=== PATIENT | male | born 1970 | race Caucasian/White ===

== ENCOUNTER 2022-06-01 01:39 | Day surgery (SDC) | payer OTHER, SELFPAY ==
[2022-05-28 14:52] VITALS: BMI 39.3
--- NOTE | 2022-05-28 14:54 | SUR.PREOP ---
Report to the Outpatient Waiting Room, entrance under the green pavilion located off [facility], at time _0600 on date _06/01/22 . OR Time: _929 . - You and your visitor will be asked a series of questions to screen for COVID 19 for your protection. - Only one visitor is allowed at this time. - The patient visitor is requested to leave or wait in car when not with patient. - A mask is required within the hospital. Patients may have clear liquids (water, carbonated beverages, clear teas, apple juice) until 3 hours prior to surgery with a maximum of 20 ounces. - No food from midnight until time of surgery - Infants may have breast milk until 4 hours before surgery, infant formula 6 hours prior to surgery. - Children will be allowed to drink immediately following surgery. If applicable, please bring a bottle or sippy cup to assist with drinking. Juice, water, soda, and popsicles are readily available. For infants on formula, please bring formula the day of surgery. Pacifiers are allowed. Take the following medications with a SIP of water the morning of surgery: _atenolol Medications to discontinue per physician ___fish oil Date to take last dose_05/29/22 Please no make-up, nail kiswahili, hairspray, perfume, deodorant, or body powder the day of surgery. No jewelry (including any body piercings) or valuables the day of surgery, leave them at home. Please take a shower or bath the night before, or the morning of, surgery with an antibacterial soap. Wear comfortable, loose fitting clothing. Children are encouraged to wear pajamas. - Jewelry must be removed prior to entering the operating room. Rings and piercings that are not removed may be cut off. - The hospital will not accept responsibility for valuables. - Please leave all valuables, including medications, at home the day of surgery. If you are going home after surgery, a licensed tank truck driver must drive you home. - NO public transportation without another adult. - We recommend that an adult stay with you for 24 hours following discharge. - We also recommend that you do not drive, make important decision, drink alcoholic beverages, or take any drugs that were not prescribed by your health care provider for at least 24 hours after your discharge time. For Pediatric surgeries, we recommend two adults accompany the child home (only one inside the building at this time). Follow any additional instructions given to you from your surgeon. If you or anyone in your household have experienced Covid symptoms in the past week, please notify your surgeon or the nurse liaison at the phone number below for possible testing. Telephone instructions given to ruth crowder and asked if any additional questions and then verbalized understanding. Patient advised to call surgeon office or pre surgery nurse liaison [phone] if any additional questions.
--- NOTE | 2022-05-31 15:55 | WPDANESEPPF ---
Anes - Initial Pre Proc Eval Procedure: Operation Date: 06/01/22 09:00 Proposed Procedures p Parathyroidectomy Exploration - John Calix MD <Zachary Fragoso DO - Last Filed: 06/02/22 08:49> Date/Time: 05/31/22 15:55 <Zachary Fragoso DO - Last Filed: 06/02/22 08:49> Surgeon: John Calix MD <Zachary Fragoso DO - Last Filed: 06/02/22 08:49> Pre Op Diagnosis: hyper parathyroidism <Zachary Fragoso DO - Last Filed: 06/02/22 08:49> Patient Data Age: 51 Gender: M Height: 1.73 m Weight: 117.27 kg <Zachary Fragoso DO - Last Filed: 06/02/22 08:49> Allergies Allergy/AdvReac Type Severity Reaction Status Date / Time Penicillins Allergy Severe HIVES Verified 06/01/22 06:08 <Zachary Fragoso DO - Last Filed: 06/02/22 08:49> Home Medications Medication Instructions Recorded Confirmed Type atenolol 25 mg tablet 25 mg PO DAILY 10/03/20 06/01/22 History cholecalciferol (vitamin D3) 50 50 mcg PO DAILY 30 days #30 caps 02/08/21 06/01/22 Rx mcg (2,000 unit) capsule cinacalcet 30 mg tablet (Sensipar) 30 mg PO DAILY 3 months #90 tabs 05/02/22 06/01/22 Rx omega-3 fatty acids-fish oil 340 1 cap PO DAILY 05/28/22 06/01/22 History mg-1,000 mg capsule (Fish Oil) oxycodone 5 mg tablet 5 mg PO Q8H PRN pain #21 tabs 06/01/22 Rx <Zachary Fragoso DO - Last Filed: 06/02/22 08:49> Patient hx anesthesia problems: none <Luis Hauser CRNA - Last Filed: 06/01/22 08:19> Family hx anesthesia problems: none <Luis Hauser CRNA - Last Filed: 06/01/22 08:19> Results Review: All pre-operative results and documents have been reviewed as part of the pre-operative evaluation. <Zachary Fragoso DO - Last Filed: 06/02/22 08:49> [facility] Past Medical History Medical History: Medical History (Updated 06/01/22 @ 12:43 by John Calix MD) H/O: HTN (hypertension) Hyperparathyroidism <Zachary Fragoso DO - Last Filed: 06/02/22 08:49> Family History Family History: Family History (Reviewed 05/10/22 @ 07:54 by Juliana Currie [facility]) Other Heart disease <Zachary Fragoso DO - Last Filed: 06/02/22 08:49> Social History Social History: Social History (Reviewed 05/10/22 @ 07:54 by Juliana Currie [facility]) Smoking status: Never smoker Second hand tobacco smoke exposure: No Alcohol intake: current Drinks per week: 2 Substance use: never Substance use type: does not use Spiritual care concerns: No <Zachary Fragoso DO - Last Filed: 06/02/22 08:49> Anes - Eval Final PreProcedure Day of Procedure 05/31/22 15:55 <Zachary Fraogso DO - Last Filed: 06/02/22 08:49> Patient weight: obese <Zachary Fragoso DO - Last Filed: 06/02/22 08:49> Heart: regular rate and rhythm <Zachary Fragoso DO - Last Filed: 06/02/22 08:49> Lungs: clear to auscultation <Zachary Fragoso DO - Last Filed: 06/02/22 08:49> Airway: Mallampati scale class II <Zachary Fragoso DO - Last Filed: 06/02/22 08:49> Mallampati scale class 1 <Luis Hauser ELEVATOR REPAIR MECHANIC - Last Filed: 06/01/22 08:19> Neurological: alert and oriented <Zachary Fragoso DO - Last Filed: 06/02/22 08:49> Last oral intake: >/= 8 hours <Zachary Fragoso DO - Last Filed: 06/02/22 08:49> ASA classification: III <Zachary Fragoso DO - Last Filed: 06/02/22 08:49> Emergent: no <Zachary Fragoso DO - Last Filed: 06/02/22 08:49> Anesthetic plan: proceed <Zachary Fragoso DO - Last Filed: 06/02/22 08:49> Anesthesia type and monitoring: general GIVS and standard monitoring <Zachary Fragoso DO - Last Filed: 06/02/22 08:49> general ETT <Luis Hauser, ELEVATOR REPAIR MECHANIC - Last Filed: 06/01/22 08:19> Results Review: All pre-operative results and documents have been reviewed as part of the pre-operative evaluatio
--- NOTE | 2022-05-31 16:45 | P.HP_ITS ---
H&P: HPI History of Present Illness Date/Time: 05/31/22 16:45 Chief Complaint: Parathyroid adenoma hypercalcemia hyperparathyroidism Narrative: patient presents for planned surgical procedures no change in symptoms no change history Review of Systems Review of Systems: All systems reviewed & are unremarkable except as noted in HPI and below [facility] Past Medical History Medical History (Updated 05/31/22 @ 16:48 by John Calix MD) H/O: HTN (hypertension) Hyperparathyroidism Family History Family History Other Heart disease Social History Social History Smoking status: Never smoker Second hand tobacco smoke exposure: No Alcohol intake: current Drinks per week: 2 Substance use: never Substance use type: does not use Living arrangements: with family Spiritual care concerns: No Meds Home Medications and Allergies Home Medications Medication Instructions Recorded Confirmed Type atenolol 25 mg tablet 25 mg PO DAILY 10/03/20 05/28/22 History cholecalciferol (vitamin D3) 50 50 mcg PO DAILY 30 days #30 caps 02/08/21 05/28/22 Rx mcg (2,000 unit) capsule cinacalcet 30 mg tablet (Sensipar) 30 mg PO DAILY 3 months #90 tabs 05/02/22 05/28/22 Rx omega-3 fatty acids-fish oil 340 1 cap PO DAILY 05/28/22 05/28/22 History mg-1,000 mg capsule (Fish Oil) Allergies Allergy/AdvReac Type Severity Reaction Status Date / Time Penicillins Allergy Intermediate HIVES Verified 05/28/22 14:31 Exam Narrative: normal ENT exam Assessment and Plan Assessment and plan (1) Hyperparathyroidism: Code(s): E21.3 - Hyperparathyroidism, unspecified Status: Acute Assessment and Plan: plan is for the operating room for parathyroidectomy 4 gland exploration if needed will start with left lower. Will need preoperative PTH level will need preoperative sestamibi injection. Risks were discussed including permanent hypercalcemia need for further procedures failure to resolve the symptoms of parathyroid adenoma cannot be found damage to recurrent laryngeal nerve postoperative bleeding postoperative infection need for postoperative pain medication and time off work. Patient voiced understanding of all these risks and agreed. Patient will also need a postoperative calcium taper. (2) Parathyroid adenoma: Code(s): D35.1 - Benign neoplasm of parathyroid gland Status: Acute (3) Hypercalcemia due to hyperthyroidism: Code(s): E83.52 - Hypercalcemia; E05.90 - Thyrotoxicosis, unspecified without thyrotoxic crisis or storm Status: Acute
[2022-06-01] VITALS (8 sets, daily range): BP systolic 136–153; BP diastolic 79–96; PULSE 65–81; RESP 12–20; TEMP 36.3–36.7; O2SAT 96–99
--- NOTE | ~2022-06-01 | NM_ITS ---
EXAMINATION: NM parathyroid injection only DATE: 06/01/2022 08:32 INDICATION: Hyperparathyroidism. TECHNIQUE: 5.6 mCi Tc99m sestamibi was administered intravenously. No images were obtained. COMPARISON: None. FINDINGS: None. IMPRESSION: 1. Injection of radiotracer for parathyroidectomy. Reviewed, dictated and finalized at location A.
--- NOTE | 2022-06-01 06:21 | ECG_ITS ---
Measurements Intervals [place] Rate: 65 P: 19 DE: 193 QRS: 9 QRSD: 89 T: 15 QT: 382 QTc: 399 Interpretive Statements SINUS RHYTHM MINIMAL Q WAVES- HIGH LATERAL LEADS BORDERLINE ECG Electronically Signed On 06-01-2022 18:21:04 CDT by Jamey Hsu D.O.
[2022-06-01] MEDS: LACTATED RINGERS 1,000 ML 30 ML IV CONT ×2 (06:40→12:20)
--- NOTE | 2022-06-01 07:08 | WPDHPUPDATE1 ---
History and Physical Update Update Date/Time: 06/01/22 07:08 History and Physical has been reviewed, including an updated exam of the patient. There are NO changes in the patient's condition. Risks, benefits, and alternatives have been discussed and questions answered. Patient agrees to proceed with procedure. Will also require recurrent laryngeal nerve monitoring, pre op pth, and pre op sestamibi.
[2022-06-01 07:53] LABS: Parathyroid Intact 212.4 pg/mL (7.5-53.5)
[2022-06-01] MEDS: ACETAMINOPHEN 500 MG TABLET 1000 MG PO (08:20)
[2022-06-01] MEDS: ceFAZolin 2 GM/D5W 50 ML 2 GM/50 ML BAG IVPB (09:11)
[2022-06-01] MEDS: LIDO 1%/EPINEPHRINE 1:100,000 10 ML VIAL INFILTRATE (09:35)
--- NOTE | 2022-06-01 12:53 | W.PM.PROC2 ---
Procedure Note - Detailed Date of Procedure 06/01/22 Pre-op Diagnosis hyper parathyroidism, parathyroid adenoma Post-op Diagnosis Same Procedure Performed Parathyroid exploration 4 gland Surgeon John Calix MD Anesthesia General Indications See above Findings Unable to find the adenoma unable to find the left inferior parathyroid gland others explored and located all appeared normal Description of Procedure Patient identified consent verified. Patient brought operating room. Time-out performed. General anesthesia induced Nims monitoring tube placed and confirmed to be in good location. Patient prepped and draped for the aforementioned procedure 2nd time-out performed Nims monitoring in place. About 5 cm incision made 1-2 finger breaths above the sternum in the midline transverse. Fifteen blade utilized to cut through the skin. Bovie electrocautery utilized to dissect through the platysma. Subplatysmal planes were raised superiorly and inferiorly to the sternum. The midline raphe was identified and blunt as well as Bovie at blunt as well as dissection Bovie electrocautery utilized to move the strap muscles off the thyroid gland. Dura hooks were placed. The left inferior thyroid aspect was explored for quite some time no adenoma or parathyroid gland was found. The left superior right inferior and right superior glands were all identified. Some of the thymic context were then explored no adenoma was identified. Several samples were sent for pathologic analysis none came back as parathyroid tissue. At this time the decision made was made to close as I could not locate the adenoma. The wound was copiously irrigated a 7 mm drain was placed the deep layers were closed with 3-0 interrupted Vicryl sutures including the strap muscles as well as the platysma. Deep dermal tissues were closed with combination of 3-0 and 4-0 interrupted sutures Vicryl. The skin was closed with skin glue. Patient appeared to tolerate the procedure well there were no complications total blood loss only about 10 cc. Estimated Blood Loss 10 Drains No Packing No Pathology Yes (Multiple frozen) Complications No immediate complications Condition Stable Disposition PACU
[2022-06-01] MEDS: oxyCODONE HCL (*CRX) 5 MG TAB IR PO (13:28)
== END 2022-06-01 14:10 | disposition home or self-care (01) ==
PROVIDERS: PCP Physician Assistant; Visit Provider Otolaryngology
PROC: (CPT 60500; principal; 2022-06-01 09:00)
DX: E21.3 Hyperparathyroidism, unspecified (principal); E05.90 Thyrotoxicosis, unspecified without thyrotoxic crisis or storm; I10 Essential (primary) hypertension; E66.9 Obesity, unspecified; Z68.39 Body mass index [BMI] 39.0-39.9, adult
CPT/HCPCS: 60500; 36415; 78808; 83970; 88305; 88331; 93005; A9270; A9500; J0330; J0690; J1100; J2250; J2405; J2704; J3010; J7120

== ENCOUNTER 2022-06-08 07:44 | Emergency (ER) | payer OTHER, SELFPAY ==
[2022-06-08 07:47] VITALS: BP 161/100; PULSE 77; RESP 18; TEMP 36.1; O2SAT 99
--- NOTE | 2022-06-08 08:02 | ED.GENADULT ---
HPI - General Adult General Chief complaint: Unspecified Stated complaint: thyroid sx on Saturday, getting red and swollen Time Seen by Provider: 06/08/22 07:53 Source: patient Mode of arrival: ambulatory Limitations: no limitations History of Present Illness HPI narrative: This is a 51 year old male who presents for wound infection s/p parathyroidectomy. Patient states Dr. Calix performed parathyroidectomy on him on 06/01/22. He noticed redness and itching at surgical site yesterday. He has some mild swellling. He denies fever, chills, nausea, vomiting or purulent drainage. He notified Dr. Calix that he was coming to ER Onset (ago): day(s) (1) Related Data Home Medications Medication Instructions Recorded Confirmed atenolol 25 mg tablet 25 mg PO DAILY 10/03/20 06/05/22 omega-3 fatty acids-fish oil 340 1 cap PO DAILY 05/28/22 06/05/22 mg-1,000 mg capsule (Fish Oil) Allergies Allergy/AdvReac Type Severity Reaction Status Date / Time Penicillins Allergy Severe HIVES Verified 06/08/22 07:57 Review of Systems Review of Systems: CONSTITUTIONAL: Denies fever, chills, or sweats. EYES: Denies visual changes, redness, or discharge. ENT: Denies rhinorrhea, congestion, sore throat, or otalgia. CARDIOVASCULAR: Denies chest pain, palpitations, or edema. RESPIRATORY: Denies cough or dyspnea. GASTROINTESTINAL: Denies abdominal pain, nausea, vomiting, or diarrhea. GENITOURINARY: Denies dysuria or hematuria. SKIN: reports redness and itching MUSCULOSKELETAL: Denies back pain, joint pain, or myalgia. NEUROLOGIC: Denies headache, numbness, or weakness. PSYCHIATRIC: Denies anxiety or depression. [facility] Past Medical History Medical History H/O: HTN (hypertension) Hyperparathyroidism Family History Family History Other Heart disease Social History Social History Smoking status: Never smoker Second hand tobacco smoke exposure: No Alcohol intake: current Drinks per week: 2 Substance use: never Substance use type: does not use Spiritual care concerns: No Exam Narrative: GENERAL: Well-appearing, well-nourished, and in no acute distress. HEAD: Normocephalic, atraumatic EYES: PERRLA and EOMI, conjunctiva clear without discharge THROAT:Mucous membranes moist, Oropharynx normal without erythema, exudate, peritonsillar swelling or fluctuance NECK: Supple, without lymphadenopathy or mass, anterior neck with horizontal laceration with mild erythema, no drainage RESPIRATORY: No respiratory distress, Airway patent, Respirations non-labored, Clear to auscultation without rales, rhonchi or wheeze HEART: Regular rate and rhythm. No murmur heard. Normal peripheral pulses. EXTREMITIES: No edema, normal strength with full range of motion. SKIN: Warm, dry, small mid upper chest incision with 8 cm area of erythema, no drainage, no crepitus NEURO: Alert and oriented x3. CN 2-12 grossly intact. No focal deficits. PSYCH: Normal mood and affect. Course Reevaluation(s) Reevaluation #1: Dr. Calix came down to ER to assess patient. He states to given patient antibiotics for cellulitis and he will closely follow patient as outpatient. Date: 06/08/22 Time: 09:45 Consultations Consultation #1: Dr. Calix will come down to see patient in ER Date: 06/08/22 Time: 08:03 Vital Signs Vital signs: Vital Signs Temperature 97.0 F L 06/08/22 07:47 Pulse Rate 77 06/08/22 07:47 Respiratory Rate 18 06/08/22 07:47 Blood Pressure 161/100 H 06/08/22 07:47 Pulse Oximetry 99 06/08/22 07:47 Oxygen Delivery Room Air 06/08/22 07:47 Temperature 97.0 F L 06/08/22 07:47 Pulse Rate 61 06/08/22 10:00 Respiratory Rate 18 06/08/22 10:00 Blood Pressure 154/84 H 06/08/22 10:00 Pulse Oximetry 98 06/08/22 10:00 Oxygen Delivery Room Air
[2022-06-08] MEDS: CLINDAMYCIN 900 MG/D5W 50 ML 900 MG/50 ML PIGGYBACK 50 MG IVPB (08:28)
[2022-06-08 09:24] VITALS: BP 161/87; PULSE 76; RESP 18; O2SAT 100
[2022-06-08 10:00] VITALS: BP 154/84; PULSE 61; RESP 18; O2SAT 98
--- NOTE | 2022-06-12 11:45 | ED.GENADULT ---
HPI - General Adult General Chief complaint: Unspecified Stated complaint: thyroid sx on Saturday, getting red and swollen Time Seen by Provider: 06/08/22 07:53 Source: patient Mode of arrival: ambulatory Limitations: no limitations History of Present Illness HPI narrative: Patient is status post parathyroidectomy several days ago. Reports 20 for history of worsening running of his chest no swelling no trouble breathing. Related Data Home Medications Medication Instructions Recorded Confirmed atenolol 25 mg tablet 25 mg PO DAILY 10/03/20 06/05/22 omega-3 fatty acids-fish oil 340 1 cap PO DAILY 05/28/22 06/05/22 mg-1,000 mg capsule (Fish Oil) Allergies Allergy/AdvReac Type Severity Reaction Status Date / Time Penicillins Allergy Severe HIVES Verified 06/08/22 07:57 Review of Systems Review of Systems: All systems reviewed & are unremarkable except as noted in HPI and below PMFSH Past Medical History Medical History H/O: HTN (hypertension) Hyperparathyroidism Family History Family History Other Heart disease Social History Social History Smoking status: Never smoker Second hand tobacco smoke exposure: No Alcohol intake: current Drinks per week: 2 Substance use: never Substance use type: does not use Spiritual care concerns: No Exam Narrative: Midline incision healing well neck is somewhat erythematous deep to the incision site no edema could be pooling of postoperative fluid versus spreading cellulitis. Not painful not Course Vital Signs Vital signs: Vital Signs Temperature 36.1 C L 06/08/22 07:47 Pulse Rate 77 06/08/22 07:47 Respiratory Rate 18 06/08/22 07:47 Blood Pressure 161/100 H 06/08/22 07:47 Pulse Oximetry 99 06/08/22 07:47 Oxygen Delivery Room Air 06/08/22 07:47 Temperature 36.1 C L 06/08/22 07:47 Pulse Rate 61 06/08/22 10:00 Respiratory Rate 18 06/08/22 10:00 Blood Pressure 154/84 H 06/08/22 10:00 Pulse Oximetry 98 06/08/22 10:00 Oxygen Delivery Room Air 06/08/22 07:47 Medical Decision Making MDM Narrative Medical decision making narrative: patient either has a spreading cellulitis versus settling of postoperative fluids in that space settling to the top of the chest subcutaneously mild concerned patient a voiced understanding that if the redness should spread or if he should develop fevers swelling difficulty breathing he will immediately return to ER. Please discharge on 1 week of anti cellulitic bacteria antibiotics anti-Staph anti MRSA. Vital Signs Vital Signs: Vital Signs Temperature 36.1 C L 06/08/22 07:47 Pulse Rate 77 06/08/22 07:47 Respiratory Rate 18 06/08/22 07:47 Blood Pressure 161/100 H 06/08/22 07:47 Pulse Oximetry 99 06/08/22 07:47 Oxygen Delivery Room Air 06/08/22 07:47 Temperature 36.1 C L 06/08/22 07:47 Pulse Rate 61 06/08/22 10:00 Respiratory Rate 18 06/08/22 10:00 Blood Pressure 154/84 H 06/08/22 10:00 Pulse Oximetry 98 06/08/22 10:00 Oxygen Delivery Room Air 06/08/22 07:47 Discharge Plan Discharge Clinical Impression: Cellulitis, Post-operative infection Patient Disposition: Home, Self-Care Condition: Stable Instructions: Antibiotic Form, Cellulitis (ED), Surgical Site Infections (ED) Additional Instructions: Take antibiotics as prescribed. Follow up with Dr. Calix. Prescriptions: New clindamycin HCl 150 mg capsule 450 mg PO Q8H 10 Days Qty: 90 0RF No Action atenolol 25 mg tablet 25 mg PO DAILY cinacalcet [Sensipar] 30 mg tablet 30 mg PO DAILY 90 Days Qty: 90 1RF Rx Instructions: pa APPROVED 10/12/2020-10/12/2021 shamika# [id number] Fish Oil 340-1,000 mg Capsule 1 cap PO DAILY cholecalciferol (vitamin D3) 50 mcg (2,000 unit) capsu
== END 2022-06-08 10:01 | disposition home or self-care (01) ==
PROVIDERS: Emergency Provider General Practice; PCP Physician Assistant
DX: T81.41XA Infection following a procedure, superficial incisional surgical site, initial encounter (principal); L03.313 Cellulitis of chest wall; E89.2 Postprocedural hypoparathyroidism; I10 Essential (primary) hypertension
CPT/HCPCS: 96365; 99284